=== PATIENT | male | born 1955 | race Caucasian/White ===

== ENCOUNTER 2019-07-21 15:58 | Emergency (ER) | payer BC ==
[~2019-07-21] VITALS: Ht 157.5 cm; Wt 72.6 kg
[2019-07-21 16:05] VITALS: Ht 157.5 cm; Wt 72.6 kg
[2019-07-21 17:29] VITALS: BP 149/94
== END 2019-07-21 17:29 | disposition home or self-care (01) ==
LOC: ED 15:58
DX: S61.431A Puncture wound without foreign body of right hand, initial encounter (principal); V00-Y99 External causes of morbidity; Y93.89 Activity, other specified; Y92.89 Other specified places as the place of occurrence of the external cause; Y99.8 Other external cause status
CPT/HCPCS: Q0092